=== PATIENT | female | born 1975 | race Caucasian/White ===

== ENCOUNTER → 2016-12-01 | Outpatient (CLI) | payer OTHER ==
[~2016-12-01] VITALS: Ht 167.6 cm; Wt 103.0 kg
--- NOTE | ~2016-12-01 | HPC ---
[facility] [address] [place] [address] PAIN MANAGEMENT CONSULTATION Name: DRU CENTENO Room #: REG [facility].#: [id number] Admission: 12/01/16 Attend Phys: Atif Mcleod DO Discharge: Date of : 71 Report #: [id number] THIS REPORT FOR: //name// CC: JOSEPH Waldrop HISTORY OF PRESENT ILLNESS: The patient is a 41-year-old female seen in consultation at the request of Dr. Strange for evaluation and recommendations for management of pain left low back radiating to the leg with some spread to the right low back. The patient notes pain has been present since 2009. She had a fall, acute exacerbation of pain. Epidural injections afforded no relief. Progressed with L5-S1 diskectomy by Dr. Olivera in 2009. She states this afforded no relief, has had ongoing pain. Had a spinal cord stimulator trial in November 2011 with no efficacy. Since that time, she is treated chronic pain fairly conservatively. She was titrated on opiate analgesics, currently taking oxycodone 15 mg t.i.d. (45 mg of oxycodone roughly equivalent to slightly under 70 mEq of morphine a day well within standard of care recommendations). She notes pain is exacerbated with walking, standing; some relief with sitting in a recliner and flexion and extension occasionally helps as well. Notes pain is occasionally continuous, shooting and aching, rates anywhere from 5-10 on a 0-10 visual analog scale. She denies any bowel or bladder continence changes or specific saddle anesthesia. REVIEW OF SYSTEMS: Complete review of systems attached to chart and was gone over with the patient. She is . She continues to smoke, which she has for 23 years, down to half a pack a day; does not drink alcohol to excess. History of non-insulin dependent diabetes, though she is on no medications for same. Some gastroesophageal reflux for which she takes Protonix. History of "mini stroke" in the past manifested as some facial palsy and dysarthria, though this resolved. She states she is a [id number] house . Pain impact score is fairly high, averaging 61/70. PHYSICAL EXAMINATION: GENERAL: Reveals a 5 feet 6 inches, 227 pounds female with a BMI of 36.7 kilograms per meter squared. VITAL SIGNS: Blood pressure is 185/114, 96, pulse is 20. HEENT: Pupils equal and reactive to light and accommodation. Extraocular muscles are intact. NECK: Cervical range of motion is full. Thyroid is modestly enlarged, no nodules are noted. HEART: Regular rhythmical without murmur. LUNGS: Clear to auscultation. NEUROLOGIC: Cranial nerves 2-12 are grossly intact. Upper extremity strength is preserved. Has an endomorphic build. Rises from chair using armrest. Mildly antalgic gait, diffuse low back pain with tenderness noted over the L4-L5 and L5-S1 facets. Lower extremity strength shows diminished left leg strength compared to the right at about 3-4/5 to all muscle groups tested versus 4-5/[address] [address] PAIN MANAGEMENT CONSULTATION Name: DRU CENTENO Room #: REG JUNIE Arizmendi#: [id number] Admission: 12/01/16 Attend Phys: Atif Mcleod DO Discharge: Date of : 71 Report #: [id number] for the right group. Straight leg raise, however, is equivocal. Patellar and Achilles reflexes are preserved. Minimally positive Americo test on the left. DIAGNOSTIC STUDIES: There are no recent diagnostic studies available for evaluation at this time. ASSESSMENT: 1. Lumbar radiculopathy status post decompressive laminectomy. 2. Sacroiliac joint dysfunction. 3. Component of lumbar spondylosis. 4. Complex medication management. RECOMMENDATION: 1. The patient is on appropriate schedule II opiate analgesic, being appropriately managed by her treating physician. I would recommend no changes here. 2. Continue OTC 3. NSAID, the patient currently takes motion p.r.n. 4. We talked about physical therapy for core stability and left leg weakness. I did generate a prescription for same. I would like to see the patient back in a about 4 weeks for reevaluation. If left SI mediated pain remains problematic, we can consider left SI joint injection under fluoroscopy versus facet joint injections if indicated clinically. If this does not afford adequate relief, we will want to move forward with an MRI of the lumbar spine if the weakness persists in that left leg. Her current medication management is appropriate. I have only added physical therapy. I would like to see her back in a month to evaluate this interventions efficacy. Thank you for allowing me to participate in this patient's care. By: [id number] Atif Mcleod DO /nt
[2016-12-01 13:14] VITALS: BP 185/114
== END ==
LOC: PAIN 07:08
DX: M47.26 Other spondylosis with radiculopathy, lumbar region (principal); M53.3 Sacrococcygeal disorders, not elsewhere classified; M96.1 Postlaminectomy syndrome, not elsewhere classified; K25.9 Gastric ulcer, unspecified as acute or chronic, without hemorrhage or perforation; R12 Heartburn; B01.9 Varicella without complication; E11.9 Type 2 diabetes mellitus without complications; M19.90 Unspecified osteoarthritis, unspecified site; Z79.1 Long term (current) use of non-steroidal anti-inflammatories (NSAID); Z88.8 Allergy status to other drugs, medicaments and biological substances; Z86.2 Personal history of diseases of the blood and blood-forming organs and certain disorders involving the immune mechanism; Z98.890 Other specified postprocedural states